=== PATIENT | male | born 1975 | race African-American/Black ===

== ENCOUNTER 2018-02-07 13:42 | Emergency (ER) | payer MEDICAID ==
[~2018-02-07] VITALS: Ht 177.8 cm; Wt 78.0 kg
[2018-02-07] MEDS ORDERED: KETOROLAC 15MG/ML VIAL IM ONE (15:15)
[2018-02-07] MEDS ORDERED: ACETAMINOPHEN 325MG TABLET PO ONE (15:15)
[2018-02-07 15:37] VITALS: BP 127/67
== END 2018-02-07 17:01 | disposition home or self-care (01) ==
LOC: ER 13:52
DX: M54.5 Low back pain (principal); F12.10 Cannabis abuse, uncomplicated; F14.10 Cocaine abuse, uncomplicated; F15.10 Other stimulant abuse, uncomplicated; Z59.0 Homelessness
CPT/HCPCS: 96372; 99283; J1885